=== PATIENT | female | born 1970 | race Caucasian/White ===

== ENCOUNTER 2016-12-19 09:06 | Day surgery (SDC) | payer BC ==
[~2016-12-19 09:06] MED LIST: Buffered Lidocaine 0.9% SYRIN* 5 ML/SYR SYRINGE INTRADERM ONE
[2016-12-19] MEDS ORDERED: ceFOXitin 2 GM IVPREMIX* 2 GM/50 ML BAG ONE (09:07)
[2016-12-19] MEDS ORDERED: Buffered Lidocaine 0.9% SYRIN* 5 ML/SYR SYRINGE ONE (09:07)
[2016-12-19 09:13] LABS: UR Preg Internal Control QC Line Present
[2016-12-19] MEDS ORDERED: Midazolam* 1 MG/ML 2 ML VIAL (2 MG) ONE (10:59)
[2016-12-19] MEDS ORDERED: fentaNYL* 50 MCG/ML 2 ML VIAL (100 MCG VIAL) ONE ×2 (10:59→13:33)
[2016-12-19] MEDS ORDERED: Dexamethasone IV* 4 MG/ML 1 ML (4 MG) ONE (13:22)
[2016-12-19] MEDS ORDERED: Ondansetron INJ* 2 MG/ML VIAL ONE (13:22)
[2016-12-19] MEDS ORDERED: Succinylcholine* 20 MG/ML 10 ML VIAL ONE (13:22)
[2016-12-19] MEDS ORDERED: Lidocaine 2% PF * 5 ML VIAL ONE (13:22)
[2016-12-19] MEDS ORDERED: Propofol* 10 MG/ML 20 ML BTL IV PUSH ONE (13:22)
[2016-12-19] MEDS ORDERED: Bupivacaine 0.5% W/EPI SDV* 10 ML VIAL INJ ONE (13:36)
[2016-12-19] MEDS ORDERED: Metoclopramide IV* 5 MG/ML 2 ML VIAL IV PRN (13:51)
[2016-12-19] MEDS ORDERED: Scopolamine 1.5 mg* PATCH TRANSDERM PRN (13:51)
[2016-12-19] MEDS ORDERED: HYDROmorphone* 1 MG/ML 1 ML SYR IV PRN (13:51)
[2016-12-19] MEDS ORDERED: fentaNYL* 50 MCG/ML 2 ML VIAL (100 MCG VIAL) IV PRN (13:51)
[2016-12-19] MEDS ORDERED: Metoclopramide IV* 5 MG/ML 2 ML VIAL ONE (15:32)
[2016-12-19 16:50] VITALS: BP 112/74
--- NOTE | 2016-12-21 12:33 | OP ---
CC: Radha Bee MD of [facility]. OPERATIVE REPORT: DATE OF OPERATION: 12/19/16 DATE OF : 72 SURGEON: Kirk Barahona MD GROUP TESTER: KEAGAN Caraballo ANESTHESIA: General anesthetic with endotracheal intubation. PRE-OP DIAGNOSIS: A 46-year-old premenopausal patient with breast cancer, which is estrogen receptor positive, currently on tamoxifen with plans of treatment with Lupron, desires prophylactic oophorectomy instead of Lupron. POST-OP DIAGNOSIS: A 46-year-old premenopausal patient with breast cancer, which is estrogen receptor positive, currently on tamoxifen with plans of treatment with Lupron, desires prophylactic oophorectomy instead of Lupron along with finding of a right adnexal mass consisting of the fallopian tube and ovary, which is densely adherent to the right pelvic sidewall dense adhesions. OPERATIVE PROCEDURE: Diagnostic laparoscopy with a left salpingo-oophorectomy. ESTIMATED BLOOD LOSS: None. SPECIMEN: Sent to pathology was left tube and ovary. FLUIDS: She received 1100 cc of IV crystalloid fluid. URINE OUTPUT: 400 cc of clear urine. FINDINGS: Laparoscopically, the patient was noted to have a normal uterus, normal appearing left fallopian tube and ovary. However, the right fallopian tube and ovary appeared inflamed. The fallopian tube was seen inflamed like a hydrosalpinx. The ovary was wrapped within fallopian tube and dense adhesions. This mass was densely adherent to the pelvic sidewall, cecum, and posterolateral uterine wall. I was unable to visualize the ureter on the left side and unable to mobilize adhesions as well. DESCRIPTION OF PROCEDURE: The patient was taken to the operating room where she was identified. She was placed on the operating table, where a general anesthetic with endotracheal intubation was obtained without difficulty. She was then placed in the dorsal lithotomy position, prepped and draped in a normal sterile fashion. Attention was then brought on to the patient's perineum where the bladder was catheterized through the urethra with a Ordaz catheter and drained of clear urine. A speculum was then inserted into the patient's vagina. The cervix was then identified, through the cervix a ClearView manipulator was introduced and the balloon in the manipulator was insufflated with 4 cc of normal saline. Attention was then brought on to the patient's abdomen where a GelPoint single incision laparoscopic surgical device was introduced through a subumbilical incision. A 3- cm transverse incision was made superficially about a centimeter below the umbilicus. The incision was then bluntly with Debby clamp. I was able to then bluntly identify the fascia just below the belly button. This was grasped with Destiny clamps, brought up through the incision and incised with a knife and then entry was conformed using a Debby clamp into patient's abdomen. The Destiny clamps on the fascia were then replaced with 0 Polysorb sutures and the fascia was extended to about 3 cm vertically. Through this incision, the GelPoint device was introduced. The trocars and the GelPoint device were placed prior to insufflation of the patient's abdomen. At this point, the patient's abdomen was insufflated with CO2 gas. She was then placed in the Trendelenburg position and a view with the laparoscope revealed findings as noted above. I then proceeded to perform a left salpingo-oophorectomy using a LigaSure device by grasping fimbriated end of the fallopian tubes with a blunt richard. I placed the LigaSure at the infundibulopelvic ligament just proximal to the ovary. This was cauterized with the LigaSure device then cut. The same was done for the fallopian tube attachment to the posterior broad ligament. Once the fallopian tube and the ovary were removed, they were removed through the incision made on the umbilicus, after removal of the GelPoint cap. The fallopian tube and ovary were send to pathology. The GelPoint cap with the trocars were then replaced. The patient's abdomen was insufflated once more. I then then proceeded to explore the mass on the right side of the uterus, I was unable to fully visualize the ovary as there were encasing adhesions from the fallopian tube and nearby bowel. There were some filmy adhesions superficially; however, there were dense adhesions to the left pelvic sidewall near the blood vessels and the cecum. The appendix was also covered in adhesions. I was unable to mobilize the mass. I then decided that best part of valor would be to not proceed with removal of this mass (as it would expose the patient to risks of bowel, ureter, and blood vessel injuries) and refer the patient for removal at a later consultation with her oncologist. At this point , I removed all the instruments from the patient's abdomen. The air was removed for the patient's abdomen as well. The fascia was then closed with 0 Polysorb suture in a running fashion and the umbilical incision was closed using 4-0 Monocryl subcuticular stitch. All the instruments were also removed from the patient's vagina. Sponge, lap, and needle counts were correct x2. She was then transferred to recovery room area in stable condition. [id number]/[facility] #: [id number] [facility]ITALJaneth
== END 2016-12-19 16:54 | disposition home or self-care (01) ==
LOC: OR 09:06
PROVIDERS: ATTEND Obstetrics & Gynecology
DX: Z40.02 Encounter for prophylactic removal of ovary(s) (principal); C50.919 Malignant neoplasm of unspecified site of unspecified female breast; Z17.0 Estrogen receptor positive status [ER+]; N73.6 Female pelvic peritoneal adhesions (postinfective); I10 Essential (primary) hypertension
CPT/HCPCS: 81025; 88305; 88307; J0330; J0694; J1100; J2250; J2405; J2704; J3010